=== PATIENT | male | born 1985 | race Two or more races ===

== ENCOUNTER 2018-04-15 10:36 | Emergency (ER) | payer OTHER ==
[2018-04-15 10:40] VITALS: BP 140/84
--- NOTE | 2018-04-15 10:46 | EDPHY ---
H & P Stated Complaint: left hand hit open power line at work Time Seen by Provider: 04/15/18 10:43 - Personal History Current Tetanus/Diphtheria Vaccine: No Current Tetanus Diphtheria and Acellular Pertussis (TDAP): No - Medical/Surgical History Hx Asthma: No Hx Chronic Respiratory Disease: No Hx Diabetes: No Hx Cardiac Disease: No Hx Renal Disease: No Hx Cirrhosis: No Hx Alcoholism: No Hx HIV/AIDS: No Hx Splenectomy or Spleen Trauma: No Other PMH: right arm ortho sx - Social History Smoking Status: Never smoked Constitutional: Initial Vital Signs Temperature (C) 36.7 C 04/15/18 10:38 Heart Rate 75 04/15/18 10:38 Respiratory Rate 18 04/15/18 10:38 Blood Pressure 140/84 H 04/15/18 10:38 O2 Sat (%) 97 04/15/18 10:38 O2 Delivery Mode Room Air Allergies/Adverse Reactions: No Known Allergies Allergy (Unverified 04/15/18 10:37) Home Medications: Medication Instructions Recorded NK [No Known Home Meds] 04/15/18 Medical Decision Making ED Course/Re-evaluation: CHIEF COMPLAINT: Hands hit power line HISTORY OF PRESENT ILLNESS: The patient is a 32 y/o male complaining of bilateral hand pain after hitting his hands against a power line emitting 32.6 kilovolts at work today. After the shock he had mild bilateral hand pain, left shoulder pain, and right leg numbness where his metal keys were. Denies loss of consciousness, feeling faint , chest pain, palpitations, shortness of breath, paresthesias, fever. REVIEW OF SYSTEMS: A 10 point review of systems was performed and is negative with the exception of the elements mentioned in the history of present illness. PHYSICAL EXAM: HR, BP, O2 Sat, RR. Temp noted General Appearance: Alert, well hydrated, appropriate, and non-toxic appearing. Head: Atraumatic without scalp tenderness or obvious injury Eyes: Pupils equal, round, reactive to light and accommodation, EOMI, no trauma , no injection. Ears: Clear bilaterally, no perforation, normal landmarks Nose: Atraumatic, no rhinorrhea, clear. Throat: There is no erythema or exudates, no lesions, normal tonsils, mucus membranes moist. Neck: Supple, 2+ carotid upstroke, nontender, no lymphadenopathy. Respiratory: No retractions, no distress, no wheezes, and no accessory muscle use. Lungs are clear to auscultation bilaterally. Cardiovascular: Regular rate and rhythm, no murmurs, rubs, or gallops. Bilateral carotid, radial, dorsalis pedis, and posterior tibial pulses intact. Good capillary refill all extremities. Gastrointestinal: Abdomen is soft, nontender, non-distended, no masses, no rebound, no guarding, no peritoneal signs. Musculoskeletal: Normal active ROM of all extremities, atraumatic. Neurological: Alert, appropriate, and interactive. The patient has normal DTRs and non-focal cranial nerves, motor, sensory, and cerebellar exam. Skin: 2 dark dots on left thumb and 2nd digit. No rashes, good turgor, no nodules on palpation. Past medical history: Denies Past surgical history: Orthopedic surgery Family history: Denies Social history: Employed, , lives in [place] DIAGNOSTICS/PROCEDURES/CRITICAL CARE TIME: The 12 lead EKG was interpreted by myself as sinus rhythm with a rate of 66. See hard copy and/or "tracemaster" electronic copy for interpretation. DIFFERENTIAL DIAGNOSIS: The differential diagnosis for the patient's hand injury included but was not limited to electrical shock, contusion, muscular strain. MEDICAL DECISION MAKING: The patient is a 32 y/o male complaining of bilateral hand pain after hitting his hands against a power line emitting 32.6 kilovolts at work today. On exam he has 2 dark dots on left thumb and 2nd digit. He has a normal heart rate and is denying chest pain or palpitations. EKG ordered. Laboratory and further imaging studies are not indicated at this time. 1050: I interpreted EKG as sinus rhythm with a rate of 66 1100: Reassessed patient and discussed normal EKG findings. Return precautions provided; patient is comfortable with this plan. Departure - Departure Disposition: Home, Routine, Self-Care Clinical Impression: Numbness and tingling Hand pain Qualifiers: Laterality: bilateral Qualified Code(s): M79.641 - Pain in right hand Electrical shock of hand Qualifiers: Encounter type: initial encounter Qualified Code(s): T75.4XXA - Electrocution, initial encounter Condition: Good Instructions: Electrical Crain in Adults (ED), Paresthesia (ED) Additional Instructions: 1. It is safe to return to work. 2. Follow up with Workman's Comp. 3. Follow-up with your primary doctor within 72 hours. 4. Return to the Emergency Department for fever, chest pain, shortness of breath , increasing pain or other worsening of condition. Referrals: Work Comp Ref/[facility] [Outside] - As per Instructions Work Comp Referral [facility] [place] [Outside] - As per Instructions Report Scribed for: Daniel Bertrand Report Scribed by: Xenia Mcgowan Date of Report: 04/15/18 Time of Report: 10:43
--- NOTE | 2018-04-15 10:53 | CPEKG ---
Heart Rate: 66 RR Interval: 909 P-R Interval: 188 QRSD Interval: 82 QT Interval: 376 QTC Interval: 394 P [place]: 19 QRS [place]: 86 T Wave [place]: 5 EKG Severity - ABNORMAL ECG - EKG Impression: SINUS RHYTHM EKG Impression: PROBABLE INFERIOR INFARCT, AGE INDETERMINATE Electronically Signed By: Daniel Bertrand 15-Apr-2018 14:03:10
== END 2018-04-15 11:09 | disposition home or self-care (01) ==
DX: T75.4XXA Electrocution, initial encounter (principal); R20.0 Anesthesia of skin; W86.8XXA Exposure to other electric current, initial encounter; Y92.69 Other specified industrial and construction area as the place of occurrence of the external cause; Y99.0 Civilian activity done for income or pay; Y93.89 Activity, other specified